=== PATIENT | female | born 1945 | race American Indian/Alaskan Native ===

== ENCOUNTER 2019-05-02 12:25 | Emergency (ER) | payer MEDICARE ==
--- NOTE | 2019-05-02 16:35 | Emergency Department Report ---
- General Chief Complaint: Upper Respiratory Infection Stated Complaint: COLD SYM/CONJESTED Time Seen by Provider: 05/02/19 16:28 Source: patient Mode of arrival: Ambulatory Limitations: No Limitations - History of Present Illness MD Complaint: cough, rhinorrhea, nasal congestion -: Gradual Severity: mild Quality: dull, aching Improves With: nothing Worsens With: nothing Associated Symptoms: rhinorrhea, nasal congestion, cough. denies: vomiting, diarrhea, epistaxis, hoarseness - Related Data Previous Rx's Medication Instructions Recorded Last Taken Type Docusate Sodium [Colace] 100 mg PO BID PRN #20 capsule 01/29/13 Unknown Rx HYDROcodone/APAP 5-325 [[place] 1 each PO Q6HR PRN #20 tablet 01/29/13 Unknown Rx 5/325 mg] Ibuprofen [Motrin] 800 mg PO TID PRN #30 tablet 01/29/13 Unknown Rx Nitrofurantoin [place]/M-Cryst 100 mg PO Q12HR 7 Days capsule 10/15/13 Unknown Rx [Macrobid] Phenazopyridine [Pyridium] 200 mg PO TID 2 Days tablet 10/15/13 Unknown Rx Cyclobenzaprine [Flexeril 10 MG 10 mg PO Q8H PRN #21 tablet 01/02/15 Unknown Rx TAB] Diclofenac Dr [Voltaren Dr] 75 mg PO Q12H PRN #20 tablet 01/02/15 Unknown Rx Albuterol INH(or & Nicu Only) 1 puff IH Q4-6H PRN #1 inha 05/02/19 Unknown Rx [ProAir HFA Inhaler] Azithromycin [Zithromax] 500 mg PO QDAY #3 tablet 05/02/19 Unknown Rx guaiFENesin/CODEINE [Robitussin AC] 5 ml PO Q6H PRN #120 ml 05/02/19 Unknown Rx Allergies Allergy/AdvReac Type Severity Reaction Status Date / Time Penicillins Allergy Swelling Verified 01/29/13 01:26 ED Review of Systems ROS: Stated complaint: COLD SYM/CONJESTED Other details as noted in HPI Comment: All other systems reviewed and negative ED Past Medical Hx - Past Medical History Previous Medical History?: No Additional medical history: over active bladder - Surgical History Past Surgical History?: Yes Additional Surgical History: hysterectomy, bi-lat foot surgery - Social History Smoking Status: Never Smoker Substance Use Type: None - Medications Home Medications: Home Medications Medication Instructions Recorded Confirmed Last Taken Type Docusate Sodium [Colace] 100 mg PO BID PRN #20 capsule 01/29/13 Unknown Rx HYDROcodone/APAP 5-325 [[place] 1 each PO Q6HR PRN #20 tablet 01/29/13 Unknown Rx 5/325 mg] Ibuprofen [Motrin] 800 mg PO TID PRN #30 tablet 01/29/13 Unknown Rx Nitrofurantoin [place]/M-Cryst 100 mg PO Q12HR 7 Days capsule 10/15/13 Unknown Rx [Macrobid] Phenazopyridine [Pyridium] 200 mg PO TID 2 Days tablet 10/15/13 Unknown Rx Cyclobenzaprine [Flexeril 10 MG 10 mg PO Q8H PRN #21 tablet 01/02/15 Unknown Rx TAB] Diclofenac Dr [Voltaren Dr] 75 mg PO Q12H PRN #20 tablet 01/02/15 Unknown Rx Albuterol INH(or & Nicu Only) 1 puff IH Q4-6H PRN #1 inha 05/02/19 Unknown Rx [ProAir HFA Inhaler] Azithromycin [Zithromax] 500 mg PO QDAY #3 tablet 05/02/19 Unknown Rx guaiFENesin/CODEINE [Robitussin AC] 5 ml PO Q6H PRN #120 ml 05/02/19 Unknown Rx ED Physical Exam - General Limitations: No Limitations General appearance: alert, in no apparent distress - Head Head exam: Present: atraumatic, normocephalic - Eye Eye exam: Present: normal appearance, PERRL Pupils: Present: normal accommodation - ENT ENT exam: Present: normal exam, normal orophraynx, mucous membranes moist - Neck Neck exam: Present: normal inspection - Respiratory Respiratory exam: Present: normal lung sounds bilaterally, rhonchi. Absent: respiratory distress, chest wall tenderness - Cardiovascular Cardiovascular Exam: Present: regular rate, normal rhythm. Absent: systolic murmur, diastolic murmur, rubs, gallop - GI/Abdominal GI/Abdominal exam: Present: soft, normal bowel sounds - Extremities Exam Extremities exam: Present: normal inspection - Back Exam Back exam: Present: normal inspection - Neurological Exam Neurological exam: Present: alert, oriented X3 - Psychiatric Psychiatric exam: Present: normal affect, normal mood - Skin Skin exam: Present: warm, dry, intact, normal color. Absent: rash ED Course Vital Signs 05/02/19 05/02/19 12:28 18:31 Temperature 99.0 F Pulse Rate 85 74 Respiratory 16 16 Rate Blood Pressure 139/62 Blood Pressure 122/60 [Right] O2 Sat by Pulse 98 99 Oximetry ED Medical Decision Making - Radiology Data Radiology results: report reviewed - Medical Decision Making This patient presents with acute cough, most consistent with . Differential diagnosis includes . Presentation not consistent with acute bacterial pneumonia, influenza, asthma, transient airway hyperresponsiveness. Presentation not consistent with chronic causes of cough (including GERD, asthma, postnasal discharge, medication side effect, CHF, lung cancer or mass). Plan: CXR, supportive care, reassess Critical care attestation.: If time is entered above; I have spent that time in minutes in the direct care of this critically ill patient, excluding procedure time. ED Disposition Clinical Impression: Cough, Bronchitis Disposition: [id number] TO HOME OR SELFCARE Is pt being admited?: No Does the pt Need Aspirin: No Condition: Stable Instructions: Chronic Bronchitis (ED), Cold Symptoms (ED), Acute Cough (ED) Prescriptions: Albuterol INH(or & Nicu Only) [ProAir HFA Inhaler] 1 puff IH Q4-6H PRN #1 inha PRN Reason: Cough guaiFENesin/CODEINE [Robitussin AC] 5 ml PO Q6H PRN #120 ml PRN Reason: Cough Azithromycin [Zithromax] 500 mg PO QDAY #3 tablet Referrals: [facility] [Provider Group] - 3-5 Days
--- NOTE | 2019-05-02 18:14 | XRay Report ---
CHEST PA AND LATERAL VIEWS INDICATION: cough. COMPARISON: None. FINDINGS: Support devices: None. Heart: Within normal limits. Lungs/Pleura: No acute pulmonary or pleural findings. IMPRESSION: 1. No significant abnormality. Signer Name: French Almanza MD Signed: 05/02/2019 6:09 PM Workstation Name: [id number]
[2019-05-02 18:32] VITALS: BP 122/60
== END 2019-05-02 18:31 | disposition home or self-care (01) ==
LOC: ED 12:25
DX: R05 Cough (principal); R09.81 Nasal congestion; J34.89 Other specified disorders of nose and nasal sinuses; Z88.0 Allergy status to penicillin; Z90.710 Acquired absence of both cervix and uterus; Z98.890 Other specified postprocedural states; Z79.899 Other long term (current) drug therapy
CPT/HCPCS: 71046